=== PATIENT | female | born 1970 | race Caucasian/White ===

== ENCOUNTER 2020-09-20 16:30 | Emergency (ER) | payer OTHER ==
[2020-09-20] MEDS ORDERED: methylPREDNISolone Sodium Succinate 125 MG/2 ML SDV IVPUSH ONE (16:36)
[2020-09-20] MEDS: Sodium Chloride 0.9% 10 ML Syringe FLUSH PRN ×2 (16:46→17:36)
[2020-09-20] MEDS ORDERED: Ondansetron 4 MG/2 ML SDV IVPUSH ONE (17:10)
[2020-09-20] MEDS ORDERED: Sodium Chloride 0.9% 1,000 ML IV ONE (18:00)
[2020-09-20 18:10] LABS: CHLORIDE,CL 102 mmol/L (98-107); SODIUM,NA 140 mmol/L (136-145)
--- NOTE | 2020-09-20 18:46 | EDM.PDOC ---
ED HPI GENERAL MEDICAL PROBLEM - General Chief Complaint: Allergic Reaction Stated Complaint: allergic reaction Time Seen by Provider: 09/20/20 16:53 - History of Present Illness INITIAL COMMENTS - FREE TEXT/NARRATIVE: Patient developed what appeared to be an allergic reaction today. No history of previous allergic reaction. Was trying a new diet bundle of shakes/supplements. Became hot/red and neck felt a little swollen. No swelling of tongue. No SOB. Does have nausea. Red welts on back. Took two Benadryl at home. Went to clinic. Given Epi-pen there. Sent to ER. - Related Data Allergies Allergy/AdvReac Type Severity Reaction Status Date / Time No Known Allergies Allergy Verified 09/20/20 16:32 Home Meds: Home Meds Doxycycline [Vibra-Tabs] 100 mg PO BID 09/20/20 [History] Loratadine [Alavert] 10 mg PO DAILY PRN 09/20/20 [History] Vitamin B Complex [B Complex] 1 tab PO DAILY 09/20/20 [History] Past Medical History - Past Health History Medical/Surgical History: Denies Medical/Surgical History ED ROS ALLERGIC REACTION - Review of Systems Review Of Systems: Comprehensive ROS is negative, except as noted in HPI. ED EXAM GENERAL NO PERIP PULSE - Physical Exam Exam: See Below Exam Limited By: No Limitations General Appearance: Alert, WD/WN, Anxious Eye Exam: Bilateral Eye: EOMI, PERRL Ears: Normal External Exam, Normal Canal, Hearing Grossly Normal Nose: No: Nasal Deformity, Nasal Swelling, Nasal Drainage Throat/Mouth: Normal Lips, Normal Oropharynx, Normal Voice, No Airway Compromise Head: Atraumatic, Normocephalic Neck: Normal Inspection, Supple, Non-Tender, Full Range of Motion Respiratory/Chest: No Respiratory Distress, Lungs Clear, Normal Breath Sounds, No Accessory Muscle Use Cardiovascular: Normal Peripheral Pulses, Regular Rate, Rhythm, No Edema, No JVD, No Murmur GI/Abdominal: Normal Bowel Sounds, Soft, Non-Tender, No Distention (Female) Exam: Deferred Rectal (Female) Exam: Deferred Back Exam: No: CVA Tenderness (L), CVA Tenderness (R), Muscle Spasm, Paraspinal Tenderness, Vertebral Tenderness Extremities: Normal Range of Motion, Non-Tender, No Pedal Edema, Normal Capillary Refill Neurological: Alert, Oriented, Normal Cognition, Normal Gait, No Motor/Sensory Deficits Psychiatric: Anxious Skin Exam: Other (red flush, some scattered raised welts on back.) Course - Vital Signs Last Recorded V/S: Last Vital Signs Temp 36.9 C 09/20/20 16:35 Pulse 92 09/20/20 16:35 Resp 20 09/20/20 16:35 BP 109/72 09/20/20 16:35 Pulse Ox 99 09/20/20 16:35 - Orders/Labs/Meds Orders: Active Orders 24 hr Category Date Time Status Sodium Chloride 0.9% [Saline Flush] Med 09/20/20 16:35 Active 10 ml FLUSH ASDIRECTED PRN Saline Lock Insert [OM.PC] Routine Oth 09/20/20 16:35 Ordered Medication Orders Sodium Chloride (Sodium Chloride 0.9% 10 Ml Syringe) 10 ml FLUSH ASDIRECTED PRN PRN Reason: Keep Vein Open Last Admin: 09/20/20 17:36 Dose: 10 ml Documented by: Admin: 09/20/20 16:46 Dose: 10 ml Documented by: ANALIA Labs: Laboratory Tests 09/20/20 09/20/20 Range/Units 17:39 17:39 WBC 11.8 H (4.0-10.2) K/uL RBC 4.74 (3.77-5.09) M/uL Hgb 14.8 (11.7-15.5) g/dL Hct 43.8 (34.0-46.0) % MCV 92.4 (84.0-98.0) fL MCH 31.2 (28.2-33.3) pg MCHC 33.8 (31.7-36.0) g/dL RDW 13.9 (11.2-14.1) % Plt Count 302 (150-350) K/uL Neut % (Auto) 79.4 (45.0-80.0) % Lymph % (Auto) 16.6 (10.0-50.0) % [place] % (Auto) 3.2 (2.0-14.0) % Eos % (Auto) 0.6 (0.0-5.0) % Baso % (Auto) 0.2 (0.0-2.0) % Neut # (Auto) 9.37 H (1.40-7.00) K/uL Lymph # (Auto) 1.96 (0.50-3.50) K/uL [place] # (Auto) 0.38 (0.00-1.00) K/uL Eos # (Auto) 0.07 (0.00-0.50) K/uL Baso # (Auto) 0.02 (0.00-0.20) K/uL Sodium 140 (136-145) mmol/L Potassium 3.2 L (3.5-5.1) mmol/L Chloride 102 (98-107) mmol/L Carbon Dioxide 25.2 (21.0-32.0) mmol/L BUN 14 (7-18) mg/dL Creatinine 0.84 (0.51-1.17) mg/dL Est Cr Clr Drug Dosing 76.18 mL/min Estimated GFR (MDRD) > 60 mL/min Glucose 156 H (70-99) mg/dL Calcium 8.6 (8.5-10.1) mg/dL Magnesium 1.7 L (1.8-2.4) mg/dL Total Bilirubin 0.4 (0.2-1.0) mg/dL AST 19 (15-37) U/L ALT 28 (12-78) U/L Alkaline Phosphatase 58 (46-116) IU/L Total Protein 6.7 (6.4-8.2) g/dL Albumin 3.6 (3.4-5.0) g/dL Meds: Medications Generic Name Dose Route Start Last Admin Trade Name Freq PRN Reason Stop Dose Admin Sodium Chloride 10 ml 09/20/20 16:35 09/20/20 17:36 Sodium Chloride 0.9% 10 Ml Syringe FLUSH 10 ml ASDIRECTED PRN Administration Keep Vein Open Discontinued Medications Generic Name Dose Route Start Last Admin Trade Name Freq PRN Reason Stop Dose Admin Diphenhydramine HCl 50 mg 09/20/20 19:30 09/20/20 19:22 Diphenhydramine 50 Mg/Ml Sdv IVPUSH 09/20/20 19:31 50 mg ONETIME ONE Administration Sodium Chloride 1,000 mls @ 999 mls/hr 09/20/20 18:00 09/20/20 18:15 Normal Saline IV 09/20/20 19:00 999 mls/hr .BOLUS ONE Administration Methylprednisolone Sodium Succinate 125 mg 09/20/20 16:36 09/20/20 16:43 Methylprednisolone Sodium Succinate 125 Mg/2 Ml Sdv IVPUSH 09/20/20 16:37 125 mg ONETIME ONE Administration Ondansetron HCl 4 mg 09/20/20 17:10 09/20/20 17:35 Ondansetron 4 Mg/2 Ml Sdv IVPUSH 09/20/20 17:11 4 mg ONETIME ONE Administration Potassium Chloride 40 meq 09/20/20 19:30 09/20/20 19:22 Potassium Chloride 20 Meq Tab.Er PO 09/20/20 19:31 40 meq ONETIME ONE Administration - Re-Assessments/Exams Free Text/Narrative Re-Assessment/Exam: 09/20/20 18:47 Patient received Solumedrol in ER. Later IV bolus added. Had dry heaves/nausea. Zofran given. Observed. Gradually improved throughout stay. Plan is to let her return home if she continues to improve once IV fluids are infused. Precautions reviewed. Recommend patient to not take any of the new shake bundle again as we do not know what component caused the reaction. Departure - Departure Time of Disposition: 19:41 Disposition: Home, Self-Care 01 Clinical Impression: Hypokalemia, Hypomagnesemia Allergic reaction Qualifiers: Encounter type: initial encounter Qualified Code(s): T78.40XA - Allergy, unspecified, initial encounter - Discharge Information *PRESCRIPTION DRUG MONITORING PROGRAM REVIEWED*: Not Applicable *COPY OF PRESCRIPTION DRUG MONITORING REPORT IN PATIENT EDITH: Not Applicable Referrals: Alejandra Escobedo PA-C [Primary Care Provider] - Forms: ED Department Discharge Additional Instructions: Take it easy tonight and tomorrow. Stay hydrated. Do NOT take any more of the shake pack/supplements as we do not know exactly what set off this reaction! Also, you were a little low in Potassium and Magnesium. We gave you some potassium before you left the ER. Try to eat potassium-rich foods. You may need to take a small dose of potassium 10meq three times a week and have your labs rechecked to see if that is enough to keep you in the normal range. 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 You can have your levels rechecked 1-2 times a year and adjust as needed. Follow up in ER as needed if you have returning symptoms. Sepsis Event Note (ED) - Evaluation Sepsis Screening Result: No Definite Risk - Focused Exam Vital Signs: Vital Signs Temp Pulse Resp BP Pulse Ox 09/20/20 16:35 36.9 C 92 20 109/72 99 - My Orders Last 24 Hours: My Active Orders 09/20/20 16:35 Sodium Chloride 0.9% [Saline Flush] 10 ml FLUSH ASDIRECTED PRN Saline Lock Insert [OM.PC] Routine - Assessment/Plan Last 24 Hours: My Active Orders 09/20/20 16:35 Sodium Chloride 0.9% [Saline Flush] 10 ml FLUSH ASDIRECTED PRN Saline Lock Insert [OM.PC] Routine
[2020-09-20] MEDS ORDERED: diphenhydrAMINE 50 MG/ML SDV IVPUSH ONE (19:30)
[2020-09-20] MEDS ORDERED: Potassium Chloride 20 MEQ Tab.ER PO ONE (19:30)
== END 2020-09-20 19:30 | disposition home or self-care (01) ==
LOC: LL.ED 16:30
DX: T78.40XA Allergy, unspecified, initial encounter (principal); E87.6 Hypokalemia; E83.42 Hypomagnesemia
CPT/HCPCS: 36415; 80053; 83735; 85025; 96374; 96375; 99283-25; 99284; A9270-GY; J1200; J2405; J2930; J7030